=== PATIENT | female | born 1995 | race Hispanic/Latino ===

== ENCOUNTER 2017-09-04 16:57 | Day surgery (SDC) | payer OTHER ==
[2017-09-04 17:48] VITALS: BMI 31.6
[2017-09-04 17:57] LABS: Amnisure Test No Membranes Rupture (No Rupture)
--- NOTE | 2017-09-04 18:04 | PDOC.LDHP ---
Labor and Delivery H&P Chief complaint: loss of fluid HPI: 22 y/o at 37w3d, patient of Dr. Hargrove, presents with a small gush of fluid after standing up from urinating. Denies any continued leakage, ctx, VB, or decreased FM. ROS neg for HEENT, cv, pulm, gi, gu, neuro, psych, skin, musculoskeletal, or constitutional symptoms other than mentioned above. OB History Details: 1 prior LTCS for [facility] Current complications: none Past Medical History: None Current medications: pre-sudhir vitamins Previous surgical history: low tranverse CS Allergies/Adverse Reactions: Allergies Allergy/AdvReac Type Severity Reaction Status Date / Time No Known Allergies Allergy Verified 12/09/13 23:58 Social history: none - Physical Exam Vital signs reviewed and normal: yes General: NAD, resting Lungs: nonlabored breathing Abdomen: gravid Extremeties: no edema FHT: category 1 (130s, mod variability, + accels, no decels) [place] contractions every: none - OB Labs Additional Labs: Amnisure negative - Assessment 22 y/o at 37w3d with no e/o SROM. status reassuring with reactive NST. - Plan -: D/c home with precautions. Advised to keep all appointments and continue daily FACs.
== END 2017-09-04 18:08 | disposition home or self-care (01) ==
LOC: L&D/OP 16:57
PROVIDERS: ATTEND Family Medicine
DX: O26.893 Other specified pregnancy related conditions, third trimester (principal); Z3A.37 37 weeks gestation of pregnancy; Z79.899 Other long term (current) drug therapy; Z98.890 Other specified postprocedural states
CPT/HCPCS: 84112

== ENCOUNTER 2018-07-03 00:07 | Emergency (ER) | payer OTHER, SELFPAY ==
[2018-07-03] MEDS ORDERED: Ibuprofen 200 MG TAB ONE (00:12)
[2018-07-03] MEDS ORDERED: Acetaminophen 500 MG TAB ONE (01:29)
--- NOTE | 2018-07-03 09:03 | RAD ---
PORTABLE CHEST ONE VIEW: Date: 07-03-18 Time: 1:09 a.m. History: Cough, congestion. FINDINGS/IMPRESSION: The heart size is normal. The lungs are expanded with mild right basilar infiltrate. No pneumothorace s or pleural effusions are seen. Findings aer suspicious for early/developing pneumonia. POS: [facility]
== END 2018-07-03 01:32 | disposition home or self-care (01) ==
LOC: ERS 00:07
DX: J18.9 Pneumonia, unspecified organism (principal); J45.909 Unspecified asthma, uncomplicated
CPT/HCPCS: 71045; 87804

== ENCOUNTER 2018-07-05 18:51 | Emergency (ER) | payer SELFPAY | END 2018-07-05 19:38 | disposition left against medical advice (07) | LOC: ERS 18:51 | DX: Z53.21 Procedure and treatment not carried out due to patient leaving prior to being seen by health care provider (principal) ==